=== PATIENT | female | born 1990 | race Caucasian/White ===

== ENCOUNTER 2019-04-04 15:24 | Emergency (ER) | payer OTHER ==
[~2019-04-04] VITALS: Ht 149.9 cm; Wt 68.5 kg
[2019-04-04 15:32] VITALS: Ht 149.9 cm; Wt 68.5 kg
[2019-04-04 17:09] VITALS: BP 132/86
== END 2019-04-04 15:45 | disposition home or self-care (01) ==
LOC: ED 15:24
DX: G43.909 Migraine, unspecified, not intractable, without status migrainosus (principal)
CPT/HCPCS: J0780; J1885; J3030; Q0162

== ENCOUNTER 2019-08-08 13:24 | Emergency (ER) | payer OTHER ==
[~2019-08-08] VITALS: Ht 149.9 cm; Wt 72.1 kg
[2019-08-08 13:29] VITALS: Ht 149.9 cm; Wt 72.1 kg
[2019-08-08 15:46] VITALS: BP 126/74
== END 2019-08-08 15:46 | disposition home or self-care (01) ==
LOC: ED 13:24
DX: G43.909 Migraine, unspecified, not intractable, without status migrainosus (principal)
CPT/HCPCS: J1885; J2405; J7030